=== PATIENT | male | born 1940 | race Caucasian/White ===

== ENCOUNTER 2022-06-07 11:43 | Outpatient (CLI) | payer MEDICARE, BC, SELFPAY ==
[2022-06-07 12:00] VITALS: BP 118/79; PULSE 67; RESP 18; O2SAT 95
[2022-06-07] MEDS: TETRACAINE 0.5% OPHTH 1 DROP EYE-LEFT ×3 (12:04→12:51)
[2022-06-07] MEDS: BRIMONIDINE TARTRATE 0.2% OPHTH 1 DROP EYE-LEFT ×2 (12:05→13:02)
--- NOTE | 2022-06-07 13:15 | PM.PROC ---
Procedure Note Date Seen: 06/07/[address] [facility] bill your pro fee for this procedure?: Yes Procedure Description: SURGEON: Geovanna Dempsey MD PREOPERATIVE DIAGNOSIS: Posterior capsular opacity, left eye POSTOPERATIVE DIAGNOSIS: Posterior capsular opacity, left eye PROCEDURE: YAG laser capsulotomy, left eye ANESTHESIA: Topical. ESTIMATED BLOOD LOSS: None PATHOLOGY SPECIMEN: None COMPLICATIONS: None INDICATIONS: See consult note for details. The risks, benefits and alternatives of the procedure were explained to the patient, who elected to proceed and signed informed consent to do so. PROCEDURE: The patient was brought to the pre-holding area where the left eye was identified as the operative eye. I placed my initials above this eye. The patient received 2 sets of 1 drop of 0.5% tetracaine and 1 drop of 1% tropicamide. They also received 1 drop of 0.2% brimonidine. They received 1 drop of 0.5% tetracaine immediately prior to bringing them back for the procedure. The patient was then brought to the procedure room where the left eye was again identified as the operative eye. A YAG Bong capsulotomy lens was placed on the eye. The laser was administered using a total number of 20 shots with an energy of 2.4 mJ per shot for a total energy of 48 mJ. The patient tolerated the procedure well. DISPOSITION: The patient was taken back to the pre-holding area and given 1 drop of 0.2% brimonidine in the left eye. They were discharged to home in stable condition. The patient was instructed to call me or go to the emergency department with any sudden change, including dramatic loss of vision, severe pain in the eye or eyebrow region, nausea, or vomiting. The patient was instructed to use the 0.2% brimonidine 1 drop 2 times a day in the left eye for 1 week. The patient will follow up in the clinic in 1-2 weeks Surgeon: Geovanna Dempsey MD
== END 2022-06-07 13:02 | disposition home or self-care (01) ==
PROVIDERS: PCP Family Medicine; Visit Provider Ophthalmology
DX: H26.9 Unspecified cataract (principal)
CPT/HCPCS: 66821; A9270

== ENCOUNTER 2022-06-09 15:06 | Emergency (ER) | payer MEDICARE, BC, SELFPAY ==
[2022-06-09] VITALS (12 sets, daily range): BP systolic 98–137; BP diastolic 60–89; PULSE 53–86; RESP 12–24; TEMP 36.2; O2SAT 93–96; BMI 42.1
--- NOTE | 2022-06-09 15:35 | ED_ITS ---
HPI - Arrhythmia/Palpitations General Time Seen by Provider: 15:35 <David Hinson MD - Last Filed: 06/09/22 19:35> Date Seen: 06/09/22 <David Hinson MD - Last Filed: 06/09/22 19:35> Chief Complaint: Arrhythmia/Palpitations <David Hinson MD - Last Filed: 06/09/22 19:35> Stated Complaint: EKG abnormalities <David Hinson MD - Last Filed: 06/09/22 19:35> Time Seen by Provider: 06/09/22 15:09 <David Hinson MD - Last Filed: 06/09/22 19:35> Source: patient <David Hinson MD - Last Filed: 06/09/22 19:35> Mode of arrival: ambulatory <David Hinson MD - Last Filed: 06/09/22 19:35> Limitations: no limitations <David Hinson MD - Last Filed: 06/09/22 19:35> History of Present Illness HPI narrative: Patient is a very nice 82-year-old gentleman who presents here for evaluation of EKG abnormalities. He is totally asymptomatic and was in follow- up with his primary care physician at the [facility]. There he was discovered to have a type 2 block Mobitz type 1, he has had no history of any chest pain shortness of breath or syncopal type symptoms. The reason he was following up as he underwent stenting at the [facility] in [place] in the early part of April. Since then he has been wonderful the only other complaint he has is he missed his medications yesterday. No history of pacemaker, no history of excessive alcohol use, thinks is thyroid is normal, <David Hinson MD - Last Filed: 06/09/22 19:35> Related Data Home Medications: Home Medications Medication Instructions Recorded Confirmed apixaban 5 mg tablet (Eliquis) mg 06/09/22 clopidogrel 75 mg tablet mg 06/09/22 diltiazem HCl 120 mg mg PO 06/09/22 capsule,extended release 24 hr isosorbide mononitrate 30 mg mg PO 06/09/22 tablet,extended release 24 hr lisinopril 20 tab 07/29/22 mg-hydrochlorothiazide 25 mg tablet omeprazole 20 mg capsule,delayed mg 06/09/22 release oxybutynin chloride 5 mg tablet mg 06/09/22 rosuvastatin 10 mg tablet mg 06/09/22 sertraline 50 mg tablet mg 06/09/22 tamsulosin 0.4 mg capsule mg PO 06/09/22 triamcinolone acetonide 0.1 % applic topical 06/09/22 topical cream <David Hinson MD - Last Filed: 06/09/22 19:35> Allergies/Adverse Reactions: Allergies Allergy/AdvReac Type Severity Reaction Status Date / Time aspirin AdvReac gi upset Verified 06/07/22 12:52 warfarin AdvReac gi upset Verified 06/07/22 12:52 <David Hinson MD - Last Filed: 06/09/22 19:35> Review of Systems Status of ROS: Reports: 10 or more systems reviewed and unremarkable except as noted in History and below <David Hinson MD - Last Filed: 06/09/22 19:35> PFSH COUNTS INCLUDE 234 BEDS AT THE [facility] Social History: Social History Smoking Status: Former smoker Do you use any of these nicotine containing products: None Second hand tobacco smoke exposure: Yes How often do you have a drink containing alcohol: 4 or more times a week How many standard drinks containing alcohol do you have on a typical day: 1 or 2 How often do you have six or more drinks on one occasion: Monthly AUDIT-C Alcohol total score: 6 Non-prescribed substance use: denies use <David Hinson MD - Last Filed: 06/09/22 19:35> Exam Const: Vital Signs, click to edit/add: Vital Signs - 24 hr 06/09/22 15:14 06/09/22 15:30 06/09/22 16:00 Temperature 97.1 F L Pulse Rate [Pulse Oximeter] 78 53 L 64 Respiratory Rate 18 20 14 Blood Pressure [Le ft Upper Arm] 129/70 117/67 108/72 Pulse Oximetry 96 95 94 06/09/22 16:30 06/09/22 17:00 06/09/22 17:30 Temperature Pulse Rate [Pulse Oximeter] 65 61 59 L Respiratory Rate 20 23 20 Blood Pressure [Le ft Upper Arm] 129/65 122/83 137/84 Pulse Oximetry 93 95 94 06/09/22 18:30 06/09/22 19:00 06/09/22 19:30 Temperature Pulse Rate [Pulse Oximeter] 79 82 86 Respiratory Rate 24 12 15 Blood Pressure [Le ft Upper Arm] 107/70 133/65 134/89 Pulse Oximetry 06/09/22 20:00 06/09/22 20:30 06/09/22 21:00 Temperature Pulse Rate [Pulse Oximeter] 66 63 65 Respiratory Rate 23 21 22 Blood Pressure [Le ft Upper Arm] 118/67 98/60 Pulse Oximetry <David Hinson MD - Last Filed: 06/09/22 19:35> Vital Signs, click to edit/add: Vital Signs - 24 hr 06/09/22 15:14 06/09/22 15:30 06/09/22 16:00 Temperature 97.1 F L Pulse Rate [Pulse Oximeter] 78 53 L 64 Respiratory Rate 18 20 14 Blood Pressure [Le ft Upper Arm] 129/70 117/67 108/72 Pulse Oximetry 96 95 94 06/09/22 16:30 06/09/22 17:00 06/09/22 17:30 Temperature Pulse Rate [Pulse Oximeter] 65 61 59 L Respiratory Rate 20 23 20 Blood Pressure [Le ft Upper Arm] 129/65 122/83 137/84 Pulse Oximetry 93 95 94 06/09/22 18:30 06/09/22 19:00 06/09/22 19:30 Temperature Pulse Rate [Pulse Oximeter] 79 82 86 Respiratory Rate 24 12 15 Blood Pressure [Le ft Upper Arm] 107/70 133/65 134/89 Pulse Oximetry 06/09/22 20:00 06/09/22 20:30 06/09/22 21:00 Temperature Pulse Rate [Pulse Oximeter] 66 63 65 Respiratory Rate 23 21 22 Blood Pressure [Le ft Upper Arm] 118/67 98/60 Pulse Oximetry <Alix Araujo MD - Last Filed: 06/12/22 11:16> Documenting provider has reviewed patient's vital signs: yes <David Hinson MD - Last Filed: 06/09/22 19:35> Common normals: no apparent distress, oriented x3, no limitations, healthy appearing, alert and well nourished <David Hinson MD - Last Filed: 06/09/22 19:35> HENMT: Common normals: normocephalic, head/scalp atraumatic, hearing grossly normal bilaterally, external ears normal, EAC's normal, TM's normal bilaterally, external nose normal, nasal mucous membranes and turbinates normal, moist oral mucous membranes, oropharynx normal, dentition normal and gingiva normal <David Hinson MD - Last Filed: 06/09/22 19:35> Head and scalp: normal to inspection, normocephalic, atraumatic and cyanosis of lips/distal nose <David Hinson MD - Last Filed: 06/09/22 19:35> Face and sinus: normal facial exam, sinuses nontender, face symmetric and acrocyanosis present <David Hinson MD - Last Filed: 06/09/22 19:35> Nose: external nose normal and nasal mucous membranes and turbinates normal <David Hinson MD - Last Filed: 06/09/22 19:35> External ear: external ears normal <David Hinson MD - Last Filed: 06/09/22 19:35> External auditory canal: EAC's normal <David Hinson MD - Last Filed: 06/09/22 19:35> Tympanic membrane: TM's normal bilaterally <David Hinson MD - Last Filed: 06/09/22 19:35> Eye: Common normals: PERRL, EOMs intact bilaterally, conjunctivae normal, no scleral icterus, no papilledema, normal visual montoya by confrontation and fundi normal bilaterally <David Hinson MD - Last Filed: 06/09/22 19:35> Conjunctiva: conjunctiva(e) normal <David Hinson MD - Last Filed: 06/09/22 19:35> Pupil: PERRL <MD Clinton Garza Last Filed: 06/09/22 19:35> Direct Ophthalmoscopy: no papilledema and fundi normal bilaterally <David Hinson MD - Last Filed: 06/09/22 19:35> Neck & C-Spine: Common normals: full ROM, no lymphadenopathy, supple, no meningeal signs, no JVD, thyroid normal and no carotid bruits <David Hinson MD - Last Filed: 06/09/22 19:35> Thyroid: thyroid normal <David Hinson MD - Last Filed: 06/09/22 19:35> Lymph: Lymphatic: no lymphadenopathy noted and no lymphedema noted <MD Clinton Garza Last Filed: 06/09/22 19:35> Chest: Common normals: inspection of chest normal, palpation of chest normal, inspection of breasts normal and palpation of breasts normal <David Hinson MD - Last Filed: 06/09/22 19:35> Resp: Common normals: normal respiratory effort, no retractions, no use of accessory muscles, clear to auscultation bilaterally and percussion normal <David Hinson MD - Last Filed: 06/09/22 19:35> Auscultation: clear to auscultation bilaterally <David Hinson MD - Last Filed: 06/09/22 19:35> Percussion: percussion normal <David Hinson MD - Last Filed: 06/09/22 19:35> Cardio: Common normals: no JVD, regular rate, regular rhythm, S1 normal heart sound, S2 normal heart sound, no gallops, no clicks, no murmurs, no rub and adriana pheral pulses 2+ throughout <David Hinson MD - Last Filed: 06/09/22 19:35> Rate: regular rate <David Hinson MD - Last Filed: 06/09/22 19:35> Rhythm: regular rhythm <David Hinson MD - Last Filed: 06/09/22 19:35> Heart sounds: S1 normal and S2 normal <MD Clinton Garza Last Filed: 06/09/22 19:35> Peripheral pulses: pulses 2+ throughout <MD Clinton Garza Last Filed: 06/09/22 19:35> GI: Common normals: Normal to inspection, nondistended, normoactive bowel sounds present, soft to palpation, non-tender, no hepatosplenomegaly, no masses and no bruits <David Hinson MD - Last Filed: 06/09/22 19:35> Palpation: soft and no hepatosplenomegaly <David Hinson MD - Last Filed: 06/09/22 19:35> : Common normals: no CVA tenderness <David Hinson MD - Last Filed: 06/09/22 19:35> Bladder/kidney exam: no CVA tenderness <David Hinson MD - Last Filed: 06/09/22 19:35> Back & Pelvis: Common normals: no CVA tenderness, thoracic and lumbar spine normal to inspection, no thoracic nor lumbar tenderness, thoraco-lumbar ROM normal and straight leg raise negative bilaterally <David Hinson MD - Last Filed: 06/09/22 19:35> Extremity: Common normals: normal to inspection, full ROM, normal capillary refill, no joint enlargement, no clubbing, cyanosis or edema, no calf tenderness and no pedal edema <David Hinson MD - Last Filed: 06/09/22 19:35> Neuro: Common normals: oriented x3 <David Hinson MD - Last Filed: 06/09/22 19:35> Sensorium/orientation: alert <David Hinson MD - Last Filed: 06/09/22 19:35> Meningeal signs: no meningeal signs <David Hinson MD - Last Filed: 06/09/22 19:35> Skin: Common normals: no rashes or lesions noted, no wounds, skin turgor normal, no jaundice, no petechiae and no mottling <David Hinson MD - Last Filed: 06/09/22 19:35> General skin exam: no rashes or lesions noted and turgor normal <David Hinson MD - Last Filed: 06/09/22 19:35> Course Course Hospital Course: I discussed with the patient he is sinus rhythm with second-degree AV block Mobitz type 1, he is otherwise doing fine we will do some blood test I will talk to [facility] you have for the majority of these if they are asymptomatic we can just watch this as an outpatient. In agreement with this. Differential diagnosis includes but is not limited to psychosocial stress, thyroid abnormalities, CHF, SVT, atrial fibrillation, ventricular tachycardia and ventricular fibrillation. This includes the life-threatening complications of heart failure, V-tach, and VFib <David Hinson MD - Last Filed: 06/09/22 19:35> Reevaluation(s) Reevaluation #1: Patient continues to be asymptomatic and his son actually brought him dinner. I did do a longer rhythm strip and there did not appear to be any evidence of a type 2 av block. On the rhythm strip I saw. History of 2nd troponin came back also elevated at 0.22 but the delta is only 0.01. This would be indicated of a chronic issue, we will do 2 more troponins, if these tend to be negative delta or the same. I think it would be reasonable to discharge him with a Holter monitor I discussed above. Follow-up with [facility], return if signs symptoms of worsening, he signed out to the [facility] for disposition follow-up with the troponins. <David Hinson MD - Last Filed: 06/09/22 19:35> Time: 19:34 <David Hinson MD - Last Filed: 06/09/22 19:35> Consultations Consultation #1: I spoke with [facility] Dr.Kyle Bergman we discussed his stenting nearly part of April, he had 2 stents in his LAD, 1 in the circumflex, also had a complete occlusion of his RCA, with collaterals coming around that. Overall severe coronary artery disease. Troponin is elevated here at 0.21 they never did a troponin at the [facility], and there is no diagnosis of chronic elevation of troponins. She thinks it is unlikely in this setting to have a myocardial infarction without any symptoms. The only symptom being the possible dysrhythmia. She is however in favor of doing serial troponins x3. If this troponin stay the same or the delta is negative that is very reassuring. Otherwise her suggestion is contact them for further of treatment options. In regards to the dysrhythmia, he she agrees it is likely a Mobitz type 1, although my nurse here wondered if it was a Mobitz type 2. I think we do have to obtain some serial EKGs, him on director of cardiac cath lab, and if this turns out to be more benign Mobitz type 1 then suggestion of Holter monitor for 48 hours and follow-up with [facility]. If this turns out to be more likely Mobitz type 2, then pacemaker is indicated. They suggest contacted them at that point and consideration of a bed although the beds were full at this time. I spoke with the patient the patient's son about this. They were comfortable with this given the fact that we really do not have bed options here either. We will keep them in the emergency room for now. <David Hinson MD - Last Filed: 06/09/22 19:35> Time: 18:45 <David Hinson MD - Last Filed: 06/09/22 19:35> Vital Signs Vital signs: Initial Vital Signs Temperature 97.1 F L 06/09/22 15:14 Temperature Source Temporal Artery Scan 06/09/22 15:14 Pulse Rate 78 06/09/22 15:14 Respiratory Rate 18 06/09/22 15:14 Blood Pressure 129/70 06/09/22 15:14 Blood Pressure Mean 89 06/09/22 15:14 Blood Pressure Position Supine 06/09/22 15:14 Pulse Oximetry 96 06/09/22 15:14 Oxygen Delivery Method 06/09/22 15:14 Vital Signs Temperature 97.1 F L 06/09/22 15:14 Pulse Rate 78 06/09/22 15:14 Respiratory Rate 18 06/09/22 15:14 Blood Pressure 129/70 06/09/22 15:14 Pulse Oximetry 96 06/09/22 15:14 Oxygen Delivery Method 06/09/22 15:14 Temperature 97.1 F L 06/09/22 15:14 Pulse Rate 65 06/09/22 21:00 Respiratory Rate 22 06/09/22 21:00 Blood Pressure 98/60 06/09/22 20:30 Pulse Oximetry 94 06/09/22 17:30 Oxygen Delivery Method 06/09/22 21:00 <David Hinson MD - Last Filed: 06/09/22 19:35> Initial Vital Signs Temperature 97.1 F L 06/09/22 15:14 Temperature Source Temporal Artery Scan 06/09/22 15:14 Pulse Rate 78 06/09/22 15:14 Respiratory Rate 18 06/09/22 15:14 Blood Pressure 129/70 06/09/22 15:14 Blood Pressure Mean 89 06/09/22 15:14 Blood Pressure Position Supine 06/09/22 15:14 Pulse Oximetry 96 06/09/22 15:14 Oxygen Delivery Method 06/09/22 15:14 Vital Signs Temperature 97.1 F L 06/09/22 15:14 Pulse Rate 78 06/09/22 15:14 Respiratory Rate 18 06/09/22 15:14 Blood Pressure 129/70 06/09/22 15:14 Pulse Oximetry 96 06/09/22 15:14 Oxygen Delivery Method 06/09/22 15:14 Temperature 97.1 F L 06/09/22 15:14 Pulse Rate 65 06/09/22 21:00 Respiratory Rate 22 06/09/22 21:00 Blood Pressure 98/60 06/09/22 20:30 Pulse Oximetry 94 06/09/22 17:30 Oxygen Delivery Method 06/09/22 21:00 <Alix Araujo MD - Last Filed: 06/12/22 11:16> MDM - Arrhythmia/Palpitations MDM Narrative Medical decision making narrative: Differential diagnosis includes but is not limited to psychosocial stress, thyroid abnormalities, CHF, SVT, atrial fibrillation, ventricular tachycardia and ventricular fibrillation. This includes the life-threatening complications of heart failure, V-tach, and VFib Patient is asymptomatic, at the present time, I will do some laboratory test I will contact [facility], but the usual course with this is watchful waiting. <David Hinson MD - Last Filed: 06/09/22 19:35> Differential diagnosis includes but is not limited to psychosocial stress, thyroid abnormalities, CHF, SVT, atrial fibrillation, ventricular tachycardia and ventricular fibrillation. This includes the life-threatening complications of heart failure, V-tach, and VFib Patient is asymptomatic, at the present time, I will do some laboratory test I will contact [facility], but the usual course with this is watchful waiting. Patient remained asymptomatic for almost 9 hours while as he was here. There were no significant arrhythmias noted on his director of cardiac cath lab. Serial troponins were stable. Repeat EKGs showing first-degree AV block and a nonspecific intraventricular block. Patient will be discharged home at this time with a Holter monitor and have a follow-up with cardiology. <Alix Araujo MD - Last Filed: 06/12/22 11:16> Differential Diagnosis Differential diagnosis: Likely palpitations, sinus tachycardia, artial fibrillation, ventricular premature beats, supraventricular tachycardia and ventricular tachycardia <David Hinson MD - Last Filed: 06/09/22 19:35> Medical Records Attestation: I reviewed the patient's medical records. <David Hinson MD - Last Filed: 06/09/22 19:35> Lab Data Attestation: I reviewed the patient's lab results. <David Hinson MD - Last Filed: 06/09/22 19:35> Labs: Lab Results 06/09/22 06/09/22 06/09/22 Range/Units 16:25 16:25 16:25 WBC 9.32 (4.50-11.00) K/uL RBC 4.95 (4.30-5.90) m/uL Hgb 14.6 (13.5-17.5) gm/dL Hct 43.5 (37.0-53.0) % MCV 88 (80-100) fL MCH 30 (26-34) pg MCHC 34 (32-36) gm/dL RDW Coeff of Richar 13.4 (11.5-15.5) % Plt Count 242 (140-440) K/uL Neut % (Auto) 66.9 (42.0-72.0) % Lymph % (Auto) 23.0 (20-44) % Bowman % (Auto) 7.4 (0.0-11.0) % Eos % (Auto) 2.1 (0.0-7.0) % Baso % (Auto) 0.4 (0.0-3.0) % Neut # (Auto) 6.23 (1.7-7.0) K/uL Lymph # (Auto) 2.14 (0.90-2.90) K/uL Bowman # (Auto) 0.70 (0.00-0.90) K/UL Eos # (Auto) 0.20 (0.00-0.50) K/uL Baso # (Auto) 0.04 (0.00-0.30) K/uL Abs Immat Gran (auto) 0.02 (0.00-0.30) K/uL Sodium 140 (135-149) mmol/L Potassium 3.5 L (3.6-5.1) mmol/L Chloride 106 (96-114) mmol/L Carbon Dioxide 24 (20-32) mmol/L BUN 29 (7-30) mg/dL Creatinine 1.2 (0.5-1.5) mg/dL Estimated Creat Clear 42.71 Estimated GFR 61 ml/min Glucose 120 H (60-115) mg/dL Calcium 8.7 (8.4-10.6) mg/dL Troponin I (0.01-0.04) ng/mL NT-Pro-B Natriuret Pep 785 H (0-450) PG/mL TSH (0.270-4.20) uIU/mL SARS-CoV-2 (PCR) Negative SARS-CoV-2 (Negative) Influenza Type A (PCR) Negative PCR FLU A (Negative) Influenza Type B (PCR) Negative PCR FLU B (Negative) RSV (PCR) Negative PCR RSV (Negative) 06/09/22 06/09/22 06/09/22 Range/Units 16:25 16:25 18:21 WBC (4.50-11.00) K/uL RBC (4.30-5.90) m/uL Hgb (13.5-17.5) gm/dL Hct (37.0-53.0) % MCV (80-100) fL MCH (26-34) pg MCHC (32-36) gm/dL RDW Coeff of Richar (11.5-15.5) % Plt Count (140-440) K/uL Neut % (Auto) (42.0-72.0) % Lymph % (Auto) (20-44) % Bowman % (Auto) (0.0-11.0) % Eos % (Auto) (0.0-7.0) % Baso % (Auto) (0.0-3.0) % Neut # (Auto) (1.7-7.0) K/uL Lymph # (Auto) (0.90-2.90) K/uL Bowman # (Auto) (0.00-0.90) K/UL Eos # (Auto) (0.00-0.50) K/uL Baso # (Auto) (0.00-0.30) K/uL Abs Immat Gran (auto) (0.00-0.30) K/uL Sodium (135-149) mmol/L Potassium (3.6-5.1) mmol/L Chloride (96-114) mmol/L Carbon Dioxide (20-32) mmol/L BUN (7-30) mg/dL Creatinine (0.5-1.5) mg/dL Estimated Creat Clear Estimated GFR ml/min Glucose (60-115) mg/dL Calcium (8.4-10.6) mg/dL Troponin I 0.21 H* 0.22 H* (0.01-0.04) ng/mL NT-Pro-B Natriuret Pep (0-450) PG/mL TSH 0.685 (0.270-4.20) uIU/mL SARS-CoV-2 (PCR) (Negative) Influenza Type A (PCR) (Negative) Influenza Type B (PCR) (Negative) RSV (PCR) (Negative) 06/09/22 06/09/22 Range/Units 21:04 23:42 WBC (4.50-11.00) K/uL RBC (4.30-5.90) m/uL Hgb (13.5-17.5) gm/dL Hct (37.0-53.0) % MCV (80-100) fL MCH (26-34) pg MCHC (32-36) gm/dL RDW Coeff of Richar (11.5-15.5) % Plt Count (140-440) K/uL Neut % (Auto) (42.0-72.0) % Lymph % (Auto) (20-44) % Bowman % (Auto) (0.0-11.0) % Eos % (Auto) (0.0-7.0) % Baso % (Auto) (0.0-3.0) % Neut # (Auto) (1.7-7.0) K/uL Lymph # (Auto) (0.90-2.90) K/uL Bowman # (Auto) (0.00-0.90) K/UL Eos # (Auto) (0.00-0.50) K/uL Baso # (Auto) (0.00-0.30) K/uL Abs Immat Gran (auto) (0.00-0.30) K/uL Sodium (135-149) mmol/L Potassium (3.6-5.1) mmol/L Chloride (96-114) mmol/L Carbon Dioxide (20-32) mmol/L BUN (7-30) mg/dL Creatinine (0.5-1.5) mg/dL Estimated Creat Clear Estimated GFR ml/min Glucose (60-115) mg/dL Calcium (8.4-10.6) mg/dL Troponin I 0.22 H* 0.21 H* (0.01-0.04) ng/mL NT-Pro-B Natriuret Pep (0-450) PG/mL TSH (0.270-4.20) uIU/mL SARS-CoV-2 (PCR) (Negative) Influenza Type A (PCR) (Negative) Influenza Type B (PCR) (Negative) RSV (PCR) (Negative) <David Hinson MD - Last Filed: 06/09/22 19:35> Lab Results 06/09/22 06/09/22 06/09/22 Range/Units 16:25 16:25 16:25 WBC 9.32 (4.50-11.00) K/uL RBC 4.95 (4.30-5.90) m/uL Hgb 14.6 (13.5-17.5) gm/dL Hct 43.5 (37.0-53.0) % MCV 88 (80-100) fL MCH 30 (26-34) pg MCHC 34 (32-36) gm/dL RDW Coeff of Richar 13.4 (11.5-15.5) % Plt Count 242 (140-440) K/uL Neut % (Auto) 66.9 (42.0-72.0) % Lymph % (Auto) 23.0 (20-44) % Bowman % (Auto) 7.4 (0.0-11.0) % Eos % (Auto) 2.1 (0.0-7.0) % Baso % (Auto) 0.4 (0.0-3.0) % Neut # (Auto) 6.23 (1.7-7.0) K/uL Lymph # (Auto) 2.14 (0.90-2.90) K/uL Bowman # (Auto) 0.70 (0.00-0.90) K/UL Eos # (Auto) 0.20 (0.00-0.50) K/uL Baso # (Auto) 0.04 (0.00-0.30) K/uL Abs Immat Gran (auto) 0.02 (0.00-0.30) K/uL Sodium 140 (135-149) mmol/L Potassium 3.5 L (3.6-5.1) mmol/L Chloride 106 (96-114) mmol/L Carbon Dioxide 24 (20-32) mmol/L BUN 29 (7-30) mg/dL Creatinine 1.2 (0.5-1.5) mg/dL Estimated Creat Clear 42.71 Estimated GFR 61 ml/min Glucose 120 H (60-115) mg/dL Calcium 8.7 (8.4-10.6) mg/dL Troponin I (0.01-0.04) ng/mL NT-Pro-B Natriuret Pep 785 H (0-450) PG/mL TSH (0.270-4.20) uIU/mL SARS-CoV-2 (PCR) Negative SARS-CoV-2 (Negative) Influenza Type A (PCR) Negative PCR FLU A (Negative) Influenza Type B (PCR) Negative PCR FLU B (Negative) RSV (PCR) Negative PCR RSV (Negative) 06/09/22 06/09/22 06/09/22 Range/Units 16:25 16:25 18:21 WBC (4.50-11.00) K/uL RBC (4.30-5.90) m/uL Hgb (13.5-17.5) gm/dL Hct (37.0-53.0) % MCV (80-100) fL MCH (26-34) pg MCHC (32-36) gm/dL RDW Coeff of Richar (11.5-15.5) % Plt Count (140-440) K/uL Neut % (Auto) (42.0-72.0) % Lymph % (Auto) (20-44) % Bowman % (Auto) (0.0-11.0) % Eos % (Auto) (0.0-7.0) % Baso % (Auto) (0.0-3.0) % Neut # (Auto) (1.7-7.0) K/uL Lymph # (Auto) (0.90-2.90) K/uL Bowman # (Auto) (0.00-0.90) K/UL Eos # (Auto) (0.00-0.50) K/uL Baso # (Auto) (0.00-0.30) K/uL Abs Immat Gran (auto) (0.00-0.30) K/uL Sodium (135-149) mmol/L Potassium (3.6-5.1) mmol/L Chloride (96-114) mmol/L Carbon Dioxide (20-32) mmol/L BUN (7-30) mg/dL Creatinine (0.5-1.5) mg/dL Estimated Creat Clear Estimated GFR ml/min Glucose (60-115) mg/dL Calcium (8.4-10.6) mg/dL Troponin I 0.21 H* 0.22 H* (0.01-0.04) ng/mL NT-Pro-B Natriuret Pep (0-450) PG/mL TSH 0.685 (0.270-4.20) uIU/mL SARS-CoV-2 (PCR) (Negative) Influenza Type A (PCR) (Negative) Influenza Type B (PCR) (Negative) RSV (PCR) (Negative) 06/09/22 06/09/22 Range/Units 21:04 23:42 WBC (4.50-11.00) K/uL RBC (4.30-5.90) m/uL Hgb (13.5-17.5) gm/dL Hct (37.0-53.0) % MCV (80-100) fL MCH (26-34) pg MCHC (32-36) gm/dL RDW Coeff of Richar (11.5-15.5) % Plt Count (140-440) K/uL Neut % (Auto) (42.0-72.0) % Lymph % (Auto) (20-44) % Bowman % (Auto) (0.0-11.0) % Eos % (Auto) (0.0-7.0) % Baso % (Auto) (0.0-3.0) % Neut # (Auto) (1.7-7.0) K/uL Lymph # (Auto) (0.90-2.90) K/uL Bowman # (Auto) (0.00-0.90) K/UL Eos # (Auto) (0.00-0.50) K/uL Baso # (Auto) (0.00-0.30) K/uL Abs Immat Gran (auto) (0.00-0.30) K/uL Sodium (135-149) mmol/L Potassium (3.6-5.1) mmol/L Chloride (96-114) mmol/L Carbon Dioxide (20-32) mmol/L BUN (7-30) mg/dL Creatinine (0.5-1.5) mg/dL Estimated Creat Clear Estimated GFR ml/min Glucose (60-115) mg/dL Calcium (8.4-10.6) mg/dL Troponin I 0.22 H* 0.21 H* (0.01-0.04) ng/mL NT-Pro-B Natriuret Pep (0-450) PG/mL TSH (0.270-4.20) uIU/mL SARS-CoV-2 (PCR) (Negative) Influenza Type A (PCR) (Negative) Influenza Type B (PCR) (Negative) RSV (PCR) (Negative) <Alix Araujo MD - Last Filed: 06/12/22 11:16> ECG Data Attestation: I personally reviewed and interpreted this ECG as follows: <David Hinson MD - Last Filed: 06/09/22 19:35> ECG interpretation date: 06/09/22 <David Hinson MD - Last Filed: 06/09/22 19:35> ECG interpretation time: 16:01 <David Hinson MD - Last Filed: 06/09/22 19:35> Prior ECG tracings: available for review <David Hinson MD - Last Filed: 06/09/22 19:35> Interpretation: Sinus rhythm with second-degree AV block Mobitz type 1, is some ST wave flattening noted laterally inferiorly. I do not have old EKGs to compare to. <David Hinson MD - Last Filed: 06/09/22 19:35> Discharge Plan Discharge Clinical Impression: Elevated troponin, Abnormal ECG <David Hinson MD - Last Filed: 06/09/22 19:35> Patient Disposition: Home, Self-Care <David Hinson MD - Last Filed: 06/09/22 19:35> Condition: Stable <David Hinson MD - Last Filed: 06/09/22 19:35> Additional Instructions: You will be discharged home with a Holter monitor today to check your heart rhythm over the next 2 days. 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 Return to the ER if you develop any chest pain or shortness of breath. <David Hinson MD - Last Filed: 06/09/22 19:35> Prescriptions: No Action isosorbide mononitrate 30 mg tablet extended release 24 hr PO clopidogrel 75 mg tablet triamcinolone acetonide 0.1 % cream TOPICAL Label Comments: APPLY TOPICALLY TO THE AFFECTED AREA THREE TIMES DAILY NEEDED tamsulosin 0.4 mg capsule PO Label Comments: TAKE 2 CAPSULES BY MOUTH EVERY DAY AFTER A MEAL omeprazole 20 mg capsule,delayed release(DR/EC) lisinopril-hydrochlorothiazide 20-25 mg tablet Label Comments: TAKE 1 TABLET BY MOUTH TWICE DAILY diltiazem HCl 120 mg capsule,extended release 24hr PO oxybutynin chloride 5 mg tablet sertraline 50 mg tablet rosuvastatin 10 mg tablet Eliquis 5 mg tablet <David Hinson MD - Last Filed: 06/09/22 19:35> Follow Up/Referrals: Vinh Smallwood MD [Primary Care Provider] - <David Hinson MD - Last Filed: 06/09/22 19:35> Stand Alone Forms: [facility] Info Instructions <David Hinson MD - Last Filed: 06/09/22 19:35>
[2022-06-09 16:34] LABS: Basophils Absolute Auto 0.04 K/uL (0.00-0.30); Basophils Percent Auto 0.4 % (0.0-3.0); Eosinophils Percent Auto 2.1 % (0.0-7.0); Hematocrit 43.5 % (37.0-53.0); Hemoglobin* 14.6 gm/dL (13.5-17.5); Immature Granulocytes Abs Auto 0.02 K/uL (0.00-0.30); Lymphocytes Absolute Auto 2.14 K/uL (0.90-2.90); Mean Corpuscular HGB Conc 34 gm/dL (32-36); Mean Corpuscular Hemoglobin 30 pg (26-34); Mean Corpuscular Volume 88 fL (80-100); Monocytes Percent Auto 7.4 % (0.0-11.0); Neutrophils Absolute Auto 6.23 K/uL (1.7-7.0); Neutrophils Percent Auto 66.9 % (42.0-72.0); Platelet Count* 242 K/uL (140-440); RDW Coefficient of Variation % 13.4 % (11.5-15.5); Red Blood Count 4.95 m/uL (4.30-5.90); White Blood Count* 9.32 K/uL (4.50-11.00)
[2022-06-09 16:35] LABS: Slide Review Reflex No
[2022-06-09 16:46] LABS: Chloride* 106 mmol/L (96-114); Sodium* 140 mmol/L (135-149)
[2022-06-09 16:47] LABS: Potassium* 3.5 mmol/L (3.6-5.1)
[2022-06-09 16:49] LABS: Carbon Dioxide* 24 mmol/L (20-32); Creatinine* 1.2 mg/dL (0.5-1.5); Est. Creatinine Clearance* 42.71; Estimated Glomerular Filt Rate 61 ml/min
[2022-06-09 16:50] LABS: Blood Urea Nitrogen* 29 mg/dL (7-30); Calcium* 8.7 mg/dL (8.4-10.6); Glucose* 120 mg/dL (60-115)
[2022-06-09 16:59] LABS: NT Pro B Type NatriureticPept* 785 PG/mL (0-450)
[2022-06-09 17:14] LABS: PCR FLU A Negative PCR FLU A (Negative); PCR FLU B Negative PCR FLU B (Negative); PCR RSV Negative PCR RSV (Negative)
[2022-06-09 17:15] LABS: SARS PCR* Negative SARS-CoV-2 (Negative); Troponin I* 0.21 ng/mL (0.01-0.04)
--- NOTE | 2022-06-09 17:17 | PC.NURSE ---
critical trop 0.21 reported from lab, Dr Hinson aware
[2022-06-09 17:21] LABS: Thyroid Stimulating Hormone* 0.685 uIU/mL (0.270-4.20)
[2022-06-09 18:55] LABS: Troponin I* 0.22 ng/mL (0.01-0.04)
[2022-06-09 21:42] LABS: Troponin I* 0.22 ng/mL (0.01-0.04)
[2022-06-10 00:19] LABS: Troponin I* 0.21 ng/mL (0.01-0.04)
== END 2022-06-10 00:40 | disposition home or self-care (01) ==
PROVIDERS: Family Medicine; Emergency Provider Family Medicine; PCP Family Medicine
DX: R79.89 Other specified abnormal findings of blood chemistry (principal); R94.31 Abnormal electrocardiogram [ECG] [EKG]
CPT/HCPCS: 36415; 80048; 83880; 84443; 84484; 85025; 87502; 87634; 87635; 93005; 93225; 93226; 99284; 99285

== ENCOUNTER 2022-09-18 14:15 | Outpatient (RCR) | payer MEDICARE, BC, SELFPAY | END 2022-11-15 14:38 | disposition home or self-care (01) | PROVIDERS: PCP Family Medicine; Visit Provider Family Medicine | DX: M25.552 Pain in left hip (principal); Z51.89 Encounter for other specified aftercare | CPT/HCPCS: 97110; 97140; 97163 ==

== ENCOUNTER 2022-10-02 20:33 | Outpatient (CLI) | payer MEDICARE, BC, SELFPAY | END 2022-10-02 20:34 | disposition home or self-care (01) | LOC: SLEEP 20:34 | PROVIDERS: PCP Family Medicine; Visit Provider Internal Medicine | DX: G47.33 Obstructive sleep apnea (adult) (pediatric) (principal); Z20.822 Contact with and (suspected) exposure to COVID-19 | CPT/HCPCS: 87635; 95811 ==

== ENCOUNTER 2023-08-05 15:57 | Emergency (ER) | payer MEDICARE, BC, SELFPAY ==
[2023-08-05 16:18] VITALS: BP 151/76; PULSE 54; RESP 18; TEMP 36.8; O2SAT 96; BMI 44.3
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
[2023-08-05 18:03] LABS: Basophils Absolute Auto 0.04 K/uL (0.00-0.30); Basophils Percent Auto 0.5 % (0.0-3.0); Eosinophils Percent Auto 2.4 % (0.0-7.0); Hematocrit 44.9 % (37.0-53.0); Hemoglobin* 14.6 gm/dL (13.5-17.5); Immature Granulocytes Abs Auto 0.02 K/uL (0.00-0.30); Immature Granulocytes Pct Auto 0.2 %; Lymphocytes Absolute Auto 2.16 K/uL (0.90-2.90); Lymphocytes Percent Auto 26.1 % (20-44); Mean Corpuscular HGB Conc 33 gm/dL (32-36); Mean Corpuscular Hemoglobin 29 pg (26-34); Mean Corpuscular Volume 89 fL (80-100); Neutrophils Absolute Auto 5.19 K/uL (1.7-7.0); Neutrophils Percent Auto 62.8 % (42.0-72.0); Platelet Count* 220 K/uL (140-440); RDW Coefficient of Variation % 13.8 % (11.5-15.5); Red Blood Count 5.04 m/uL (4.30-5.90); White Blood Count* 8.27 K/uL (4.50-11.00)
[2023-08-05 18:07] LABS: Slide Review Reflex No
[2023-08-05 18:27] LABS: C Reactive Protein* < 0.5 mg/dL (0.5-1.0)
== END 2023-08-05 18:54 | disposition home or self-care (01) ==
PROVIDERS: Emergency Provider Family Medicine; PCP Family Medicine
DX: S60.221A Contusion of right hand, initial encounter (principal); W22.8XXA Striking against or struck by other objects, initial encounter
CPT/HCPCS: 36415; 73130; 85025; 86140; 99283; 99284

== ENCOUNTER 2024-10-28 14:01 | Outpatient (CLI) | payer MEDICARE, BC, SELFPAY ==
--- OUTSIDE RECORDS SUMMARY | 2024-10-28 08:33 | XMS_ITS | Encounter Summary ---
Author Name [facility] [place] Organization [facility] [place] Address [address] [place] [id number] Support Name Relationship Address Phone WINNIE FULLER Next of Kin [address] [place] [address] [phone] Insurance Providers: All historical and current Section Date Range: From patient's date of to the date document was created. This section includes the names of all active insurance providers for the patient. Insurance Provider Type of Coverage Plan Name Start of Policy Coverage End of Policy Coverage Group Number Member ID Insurance Provider's Telephone Number Policy Painting's Name Patient's Relationship to Policy Painting BS [place] ([place] MEDICARE ADVANTAGE MCR (WNR) Dec 13, 2012 [id number] [phone] MIKE FULLER PATIENT Selected Encounter This section includes the information on record at [place] for the Encounter. Date/Time Encounter Type Encounter Description Reason Provider Source Jul 03, 2024 02:30 PM CONFORMITY EVALUATION AUDIOLOGY ICD-10-CM H90.3 Sensorineural hearing loss, bilateral LANDE,BRIDGER L E Encounter Template Text not used by CT Assessments - Encounter Diagnoses This section includes the primary and secondary diagnoses documented for the Encounter. Date/Time Primary/Secondary Diagnosis Diagnosis Name Provider Source Jul 03, 2024 03:12 PM PRIMARY Sensorineural hearing loss, bilateral LANDEBRIANNEBRIDGER L [facility] Jul 03, 2024 03:12 PM SECONDARY Encounter for fitting and adjustment of hearing aid OLE HUMMELA L [facility] Jul 03, 2024 03:12 PM SECONDARY Tinnitus, bilateral LANDE,BRIDGER L [facility] Encounter Notes: All associated encounter notes This section contains the clinical notes associated to the Encounter. Date/Time Encounter Note(s) Provider Source Jul 03, 2024 06:39 AM AUDIOLOGY NOTE: LOCAL TITLE: AUDIOLOGY CLINIC NOTE STANDARD TITLE: AUDIOLOGY NOTE DATE OF NOTE: JUL 03, 2024@06:39 ENTRY DATE: JUL 03, 2024@06:39:56 AUTHOR: BRIDGER HUMMEL COSIGNER: URGENCY: STATUS: COMPLETED SUBJECT: [place] Fitting DIAGNOSIS: Encounter for Fitting and Adjustment of Hearing Aid, Bilateral Sensorineural Hearing Loss, Bilateral Tinnitus REASON FOR VISIT: Therapeutic - hearing aid fitting, conformity evaluation (real-ear measures) Appointment Length: 60 minute appointment OTOSCOPY: Free of excessive cerumen, normal anatomy bilaterally HISTORY: Early is a previous hearing aid user. He was advised to keep his previous [employer] aids as back-up devices. Hearing aids right/left; Date Fit: 07/03/2024 Make: Phonak Model: Audeo L90-R Style: BEULAH Serial #: [id number] Disabilities Caregiver/Slim Tube Size: 2 M Dome/Earmold: Small Vented ACCESSORIES: iPhone CONFORMITY EVALUATION (VERIFICATION OF HEARING AID FUNCTION): Aided Responses were measured using the DFT Microsystemsit2 system. According to the NAL-NL2 fitting method, the patient's hearing aid(s) is meeting target for soft, average, and loud speech. Loudness intolerance was measured using a 90 dB MPO tone sweep and the patient was able to tolerate the output of the hearing device(s). The fit was found to be satisfactory. HEARING AID PROGRAMMING: Hearing aid(s) are a good physical fit. Hearing aid(s) were programmed to prescriptive targets, which were derived from the Veterans hearing loss. Veterans subjective impressions were considered while adjusting the hearing aid (s). The frequency response is set at 100% of target gain. Feedback test was completed and feedback clinical nutrition manager was activated. Volume control enabled Synchronized A phone call was placed in office today and the patient was able to hear comfortably. Phone placement was reviewed. was counseled on the following: -Full-time hearing aid use and acclimating to amplification -Realistic expectations for hearing aid use -Appropriate communication strategies -Location and operation of all controls -Proper care and maintenance -Protecting hearing in high noise levels -[employer] [facility] [employer] [facility] and Call Center contact information and services, including the trial period and Quick Clinic hours Early reported good sound quality and equal balance between ears after adjustments were made. reported a comfortable fit. demonstrated understanding of the new aid(s) and was able to insert the hearing aid(s) appropriately, as well as manipulate the controls. The was counseled on the standard curriculum of features including Bluetooth compatibility options. would prefer to not have his phone paired for streaming at the time - just to the [employer] Adela. The housing inspectors phone application was reviewed in detail (volume control, program changes, settings, etc.) and demonstrated in the office. Prognosis for success is good given the Early's response to the hearing aid(s). Hearing aid(s) were issued and supplies were mailed. PLAN: Early will return to clinic as needed for service. Patient is in agreement with this plan. /ayde/ CAROLINA MATHEWS, [facility]-A DIRECTOR, HEARING IMPLANT PROGRAM Signed: 07/03/2024 15:12 BRIDGER HUMMEL [facility]
--- OUTSIDE RECORDS SUMMARY | 2024-10-28 08:33 | XMS_ITS | Continuity of Care Document ---
Author Name [facility] Organization [facility] Care Team Providers Care Subwarehouse Supervisor Name Role Phone [facility] Unavailable Unavailable Problems Combined list of problems from Department of Defense and Veterans Affairs facilities. It does not include entries that were removed or entered in error. Problem Status Onset Date Problem Type Date of Resolution Comments Source Diagnosis: ICD-10-CM H90.3 Sensorineural hearing loss, bilateral Active Diagnosis [facility] Diagnosis: ICD-10-CM Z01.118 Encntr for exam of ears and hearing w oth abnormal findings Active Diagnosis [facility] Encounters Combined list of: 1) Encounters from Department of Veterans Affairs facilities going back up to thelast 18 months. 2) Encounters from the Department of [facility] facilities going back up to 280 months. Location Location Details Encounter Type Encounter Number Reason For Visit Attending Provider ADM Date DC Date Status Disposition Source [facility]MM[facility] TESTING [id number] Diagnos is: ICD-10- CM Z01.118 Encntr for exam of ears and hearing w oth abnorma l finding s
MELO HUMMEL ICA L 06/03 [facility] CONFORMITY EVALUATION [id number] Diagnos is: ICD-10- CM H90.3 Sensori neural hearing loss, bilater al
MELO HUMMEL ICA L 07/03 [facility]
--- OUTSIDE RECORDS SUMMARY | 2024-10-28 08:33 | XMS_ITS | Encounter Summary ---
Author Name [facility] Organization [facility] Address [address] [place] [id number] Support Name Relationship Address Phone WINNIE FULLER Next of Kin [address] [place] [address] [phone] Insurance Providers: All historical and current Section Date Range: From patient's date of to the date document was created. This section includes the names of all active insurance providers for the patient. Insurance Provider Type of Coverage Plan Name Start of Policy Coverage End of Policy Coverage Group Number Member ID Insurance Provider's Telephone Number Policy Painting's Name Patient's Relationship to Policy Painting [facility] MCR (WNR) MEDICARE ADVANTAGE MCR (WNR) Dec 13, 2012 [id number] [phone] MIKE FULLER PATIENT Selected Encounter This section includes the information on record at [place] for the Encounter. Date/Time Encounter Type Encounter Description Reason Provider Source Jun 03, 2024 02:30 PM [facility] TESTING AUDIOLOGY ICD-10-CM Z01.118 Encntr for exam of ears and hearing w oth abnormal findings BRIDGER HUMMEL San[place] Encounter Template Text not used by [place] Assessments - Encounter Diagnoses This section includes the primary and secondary diagnoses documented for the Encounter. Date/Time Primary/Secondary Diagnosis Diagnosis Name Provider Source Jun 03, 2024 03:51 PM PRIMARY Encntr for exam of ears and hearing w oth abnormal findings BRIDGER HUMMEL [facility] Jun 03, 2024 03:51 PM SECONDARY Sensorineural hearing loss, bilateral BRIDGER HUMMEL [facility] Jun 03, 2024 03:51 PM SECONDARY Tinnitus, bilateral BRIDGER HUMMEL [facility] Plan of Treatment: Future Appointments (+ 6 months) and Future Tests (+/- 45 days) The Plan of Treatment section includes future care activities for the patient from all [place] treatmentfacilities. This section includes future appointments and future orders which are active, pending or scheduled. Future Appointments This section includes appointments that were scheduled to occur 6 months from the date of the Encounter, up to a maximum of 20 appointments. [facility]. Appointment Date/Time Appointment Type Appointme nt Facility Name Jul 03, 2024 02:30 PM AMBULATORY - SURGERY [facility] Encounter Notes: All associated encounter notes This section contains the clinical notes associated to the Encounter. Date/Time Encounter Note(s) Provider Source Jun 03, 2024 03:51 PM SUICIDE PREVENTION RISK ASSESSMENT SCREENING NOTE: LOCAL TITLE: [place] SCREENING NOTE STANDARD TITLE: SUICIDE PREVENTION RISK ASSESSMENT SCREENING NOT DATE OF NOTE: JUN 03, 2024@15:51 ENTRY DATE: JUN 03, 2024@15:51:33 AUTHOR: BRIDGER HUMMEL EXP COSIGNER: URGENCY: STATUS: COMPLETED C-SSRS Screening Assumption-Suicide Severity Rating Scale (C-SSRS Screener) 1. Over the past month, have you wished you were or wished you could go to sleep and not wake up? No 2. Over the past month, have you had any actual thoughts of killing yourself? No 3. Over the past month, have you been thinking about how you might do this? Response not required due to responses to other questions. 4. Over the past month, have you had these thoughts and had some intention of acting on them? Response not required due to responses to other questions. 5. Over the past month, have you started to work out or worked out the details of how to kill yourself? Response not required due to responses to other questions. 6. If yes, at any time in the past month did you intend to carry out this plan? Response not required due to responses to other questions. 7. In your lifetime, have you ever done anything, started to do anything, or prepared to do anything to end your life (for example, collected pills, obtained a gun, gave away valuables, went to the roof but didn't jump)? No 8. If YES, was this within the past 3 months? Response not required due to responses to other questions. /ayde/ CAROLINA MATHEWS, [facility]-A DIRECTOR, HEARING IMPLANT PROGRAM Signed: 06/03/2024 15:51 BRIDGER HUMMEL [facility] Jun 03, 2024 06:51 AM AUDIOLOGY NOTE: LOCAL TITLE: AUDIOLOGY CLINIC NOTE STANDARD TITLE: AUDIOLOGY NOTE DATE OF NOTE: JUN 03, 2024@06:51 ENTRY DATE: JUN 03, 2024@06:51:19 AUTHOR: BRIDGER HUMMEL EXP COSIGNER: URGENCY: STATUS: COMPLETED SUBJECT: HAE DIAGNOSIS: Encounter for examination of ears and hearing Sensorineural loss Tinnitus REASON FOR VISIT: HEARING EVALUATION AND HEARING AID SELECTION, 60 MINUTES: Montague was seen in the clinic today for a comprehensive audiologic evaluation, tympanometry/acoustic reflexes/acoustic reflex decay and hearing aid selection. HISTORY: The is new to this clinic. The is Service Connected for Hearing Loss and Tinnitus. was unaccompanied. The currently wears the following hearing aids: Phonak BEULAH aids purchased from [employer] in 2018. Montague's history of noise exposure: The served in the [employer], and was exposed to noise during the [place] War (artillery and explosions). 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 Established goals for hearing aid use: Patient reviewed the Client Oriented Scale of Improvement (COSI) categories and chose his/her top three to work on with the new hearing aids (listed in order of importance by patient). Goal #1 Conversation with family in quiet Goal #2 Conversation with group in noise Goal #3 Phone connectivity to hear coversation better as well as be able to adjust the aids OTOSCOPY: Right Ear: Free of excessive cerumen. Neg. EAM collapse/impaction. Left Ear: Free of excessive cerumen. Neg. EAM collapse/impaction. COMPREHENSIVE AUDIOGRAM: Air conduction, bone conduction and speech testing were completed bilaterally. Transducer: Supra-aural headphones Reliability: Good RIGHT EAR (Hz) 250 [phone] 1500 2000 3000 4000 6000 8000 Air: Please see audiogram display under tools --> ROES Bone: LEFT EAR (Hz) 250 [phone] 1500 2000 3000 4000 6000 8000 Air: Please see audiogram display under tools --> ROES Bone: - All thresholds are in dB HL * = Masked Threshold SPEECH RECOGNITION THRESHOLD: RIGHT EAR: 35 dBHL LEFT EAR: 30 dBHL WORD RECOGNITION: RIGHT EAR %: 92 Level: 65* dB via CD LEFT EAR % : 92 Level: 65* dB via CD (MLV=Monitored Live Voice/CNC=Consonant Nucleus Consonant/CD=Compact Disk) MCL/UCL: 75 / 75 dB 100 / 100 dB Right/Left Ear respectively TYMPANOMETRY: RIGHT EAR: Type: A Pressure: Normal Compliance: Normal Volume: Normal LEFT EAR : Type: A Pressure: Normal Compliance: Normal Volume: Normal ACOUSTIC REFLEXES THRESHOLDS (dB HL) - MEASUREMENTS FROM PROBE EAR: RIGHT EAR (Hz): 500 1000 2000 IPSILATERAL: 80 85 100 CONTRALATERAL: 90 90 100 LEFT EAR (Hz): 500 1000 2000 IPSILATERAL: 90 85 100 CONTRALATERAL: 95 100 NR NR = No Response ACOUSTIC REFLEX DECAY (MEASURED FROM CONTRALATERAL RESPONSE AT 500 AND 1000 Hz) RIGHT EAR: Negative LEFT EAR: Negative SUMMARY: Right ear - Hearing sensitivity within normal limits through 500 Hz sloping to a moderately-severe sensorineural hearing loss with normal word recognition abilities. Tympanometry reveals a type A configuration indicating normal middle ear function with acoustic reflexes consistent with degree of hearing loss. Decay is negative for VIII nerve involvement. Left ear - Hearing sensitivity within normal limits through 500 Hz sloping to a severe sensorineural hearing loss with normal word recognition abilities. Tympanometry reveals a type A configuration indicating normal middle ear function with acoustic reflexes consistent with degree of hearing loss. Decay is negative for VIII nerve involvement. HEARING AID SELECTION: - is a good candidate for hearing aid use. - Montague was counseled on his type, degree and configuration of hearing loss using a standard curriculum. - The 's hearing loss has progressed currently to the extent that it affects full participation in the provision of health care as noted today in our discussions. Hearing aids are medically indicated to treat the 's auditory conditions. - Different styles/technologies were reviewed with consideration given to veterans listening situations and lifestyle needs. - The has good vision, memory, and dexterity for hearing aid use. - Hearing aids ordered: [employer] L90-R BEULAH hearing aids (graphite, Size 2 M receivers, small vented domes) were selected and ordered today. - Accessories: has an iPhone and will plan to download the gDine maurice prior to the fitting appointment. - counseled using a standard curriculum on realistic expectations associated with adjusting to hearing aids, use of the devices, VA procedures and trial period. - Montague counseled using a standard curriculum on effective communication strategies such as maintaining face to face contact when speaking, eliminating background noise when possible, and talking at a close distance. - Montague counseled using a standard curriculum on hearing protection in noise. PLAN: - will be scheduled for a 60-minute hearing aid fitting appointment. - PATIENT IS IN AGREEMENT WITH THIS PLAN. /ayde/ CAROLINA MATHEWS, [facility]-A DIRECTOR, HEARING IMPLANT PROGRAM Signed: 06/03/2024 15:51 BRIDGER HUMMEL [facility]
== END 2024-10-28 14:02 | disposition home or self-care (01) ==
LOC: INJ CL 14:02
PROVIDERS: PCP Family Medicine; Visit Provider Family Medicine
DX: M54.16 Radiculopathy, lumbar region (principal); M51.362 Other intervertebral disc degeneration, lumbar region with discogenic back pain and lower extremity pain
CPT/HCPCS: 62323; J0702; Q9966

== ENCOUNTER 2025-03-03 14:14 | Outpatient (CLI) | payer MEDICARE, BC, SELFPAY | END 2025-03-03 14:15 | disposition home or self-care (01) | LOC: INJ CL 14:15 | PROVIDERS: PCP Family Medicine; Visit Provider Family Medicine | DX: M51.362 Other intervertebral disc degeneration, lumbar region with discogenic back pain and lower extremity pain (principal); M54.16 Radiculopathy, lumbar region | CPT/HCPCS: 62323; J0702; Q9966 ==